=== PATIENT | female | born 1945 | race Asian ===

== ENCOUNTER 2019-12-26 15:01 | Emergency (ER) | payer BC, MEDICARE ==
[~2019-12-26] VITALS: Ht 152.4 cm; Wt 55.6 kg
--- NOTE | 2019-12-26 15:49 | NUR ---
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
--- NOTE | 2019-12-26 16:11 | NUR ---
PT CAME IN CO OF "HEART PALPATATIONS". DENIES CP. EKG COMPLETE. MD IS BEDSIDE FOR ASSESSMENT. PT IS CONNECTED TO MONITORING EQUIPMENT.
[2019-12-26 16:30] LABS: BASOPHILS # (AUTO) 0.04 x10^3/uL (0-0.1); BASOPHILS % (AUTO) 1 % (0-1); EOSINOPHILS # (AUTO) 0.03 x10^3/uL (0-0.4); EOSINOPHILS % (AUTO) 1 % (1-7); LYMPHOCYTES # (AUTO) 2.45 x10^3/uL (1-3.4); LYMPHOCYTES % (AUTO) 50 % (22-44); MD NO; MEAN CORPUSCULAR HEMOGLOBIN 30.6 pg (27.0-34.8); MEAN CORPUSCULAR HGB CONC 33.5 g/dL (32.4-35.8); MEAN CORPUSCULAR VOLUME 91.2 fL (80-100); MEAN PLATELET VOLUME 7.3 fL (7.4-10.4); MONOCYTES # (AUTO) 0.36 x10^3/uL (0.2-0.8); MONOCYTES % (AUTO) 7 % (2-9); NEUTROPHILS # (AUTO) 2.06 x10^3/uL (1.8-6.8); NEUTROPHILS % (AUTO) 42 % (42-75); PLATELET COUNT 327 x10^3/uL (130-400); RED BLOOD COUNT 3.77 x10^6/uL (3.82-5.3); RED CELL DISTRIBUTION WIDTH 15.7 % (9.6-15.2)
--- NOTE | 2019-12-26 16:35 | NUR ---
PT RESTING IN [facility]. BLANKET PROVIDED. VSS. NAD
[2019-12-26 16:41] LABS: ANION GAP 4 mmol/L (5-15); CALCIUM 9.4 mg/dL (8.5-10.1); CHLORIDE 108 mmol/L (98-107)
[2019-12-26 16:48] LABS: ALANINE AMINOTRANSFERASE 26 U/L (12-78); ALKALINE PHOSPHATASE 50 U/L (45-117); BILIRUBIN,TOTAL 0.3 mg/dL (0.2-1.0); CREATININE 1.46 mg/dL (0.55-1.02); TOTAL PROTEIN 7.9 g/dL (6.4-8.2); TROPONIN I 0.016 ng/mL (0.000-0.045)
[2019-12-26 17:39] VITALS: BP 123/55
--- NOTE | 2019-12-26 17:40 | NUR ---
PT RESTING IN [facility]. NAD. VSS. AWAITING TO Carmencita WELDON
--- NOTE | 2019-12-26 18:12 | NUR ---
Task RN: Discharge instructions given. All questions and concerns addressed. Patient ambulatory with a steady gait. Belongings with patient.
== END 2019-12-26 18:14 | disposition home or self-care (01) ==
LOC: ED 17:38
DX: J18.1 Lobar pneumonia, unspecified organism (principal); R00.2 Palpitations; R94.31 Abnormal electrocardiogram [ECG] [EKG]
CPT/HCPCS: 36415; 71045; 80053; 84145; 84443; 84484; 85025; 93005; 99285